=== PATIENT | male | born 1965 | race African-American/Black ===

== ENCOUNTER 2018-06-06 17:57 | Emergency (ER) | payer OTHER ==
[2018-06-06 19:23] LABS: Hemoglobin 16.8 g/dL (14.0-18.0); Mean Corpuscular HGB CONC 34.2 g/dL (32.0-36.0); Mean Corpuscular Hemoglobin 32.1 pg (27.0-31.0); Mean Corpuscular Volume 93.9 fL (78.0-98.0); Platelet Count 180 thou/uL (130-400); RBC Distribution Width 11.7 % (11.5-14.5); Red Blood Cell (RBC) Count 5.23 mill/uL (4.70-6.10); White Blood Cell (WBC) Count 9.4 thou/uL (4.8-10.8)
[2018-06-06 19:38] LABS: Band 10 % (5-11); Lymphocytes 5 % (21-51); MDiff Complete? YES; Monocytes 1 % (0-10); Neutrophil 84 % (42-75); PLT Morphology Comment Appears Adequate; RBC Morphology Normal
[2018-06-06 19:46] LABS: ALT (SGPT) 21 U/L (8-55); AST (SGOT) 18 U/L (5-34); Albumin 4.5 g/dL (3.5-5.0); Alkaline Phosphatase 72 U/L (40-150); Anion Gap 16 mmol/L (10-20); BUN (Urea Nitrogen) 15 mg/dL (8.4-25.7); Bilirubin, Total 0.8 mg/dL (0.2-1.2); Calc. Creatinine Clearance 0 mL/min (70-130); Calcium 9.8 mg/dL (7.8-10.44); Carbon Dioxide 21 mmol/L (22-29); Chloride 104 mmol/L (98-107); Estimated GFR-MDRD 65; Globulin 3.9 g/dL (2.4-3.5); Glucose 110 mg/dL (70-105); Lipase 40 U/L (8-78); Potassium 4.1 mmol/L (3.5-5.1); Protein, Total 8.4 g/dL (6.0-8.3); Sodium 137 mmol/L (136-145)
[2018-06-06] MEDS ORDERED: Ondansetron HCl/PF 4 MG/2 ML Vial ONE (19:50)
[2018-06-06] MEDS ORDERED: Morphine 4 MG/ML VIAL ONE (19:50)
[2018-06-06] MEDS ORDERED: Pantoprazole 40 MG VIAL ONE (19:51)
--- NOTE | 2018-06-11 14:02 | EKG ---
Test Reason : Blood Pressure : / mmHG Vent. Rate : 098 BPM Atrial Rate : 098 BPM P-R Int : 142 ms QRS Dur : 114 ms QT Int : 366 ms P-R-T Axes : 075 253 013 degrees QTc Int : 467 ms Normal sinus rhythm Possible Left atrial enlargement Right bundle branch block Abnormal ECG Undetermined axis Confirmed by PAULA MILLIGAN, MELINDA ([id number]), brands editor YUNI MANRIQUEZ ([id number]) on 06/11/2018 2:02:05 PM Referred By: Confirmed By:MELINDA MITCHELL MD
== END 2018-06-06 22:23 | disposition home or self-care (01) ==
LOC: ERS 17:57
DX: K52.9 Noninfective gastroenteritis and colitis, unspecified (principal); E78.5 Hyperlipidemia, unspecified; F32.9 Major depressive disorder, single episode, unspecified; F41.9 Anxiety disorder, unspecified; I10 Essential (primary) hypertension; G43.909 Migraine, unspecified, not intractable, without status migrainosus; Z79.899 Other long term (current) drug therapy
CPT/HCPCS: 36415; 80053; 83605; 83690; 85025; 93005; 96361; 96374; 96375; C9113; J2270; J2405

== ENCOUNTER 2019-05-18 11:10 | Emergency (ER) | payer OTHER ==
[2019-05-18] MEDS ORDERED: Dexamethasone 4 mg/ml Vial ONE (12:57)
[2019-05-18] MEDS ORDERED: Ketorolac Tromethamine 60 MG/2 ML VIAL ONE (12:57)
== END 2019-05-18 14:27 | disposition home or self-care (01) ==
LOC: ERS 11:10
DX: S39.012A Strain of muscle, fascia and tendon of lower back, initial encounter (principal); I67.1 Cerebral aneurysm, nonruptured; E78.5 Hyperlipidemia, unspecified; I10 Essential (primary) hypertension; F41.9 Anxiety disorder, unspecified; F32.9 Major depressive disorder, single episode, unspecified; Z79.82 Long term (current) use of aspirin; Z79.899 Other long term (current) drug therapy; X58.XXXA Exposure to other specified factors, initial encounter
CPT/HCPCS: 96372; 99283; J1100; J1885

== ENCOUNTER 2021-11-01 08:53 | Inpatient (IN) | payer OTHER ==
[2021-11-01 09:34] LABS: #Basophils 0.1 thou/uL (0.0-0.2); #Lymphocytes 1.9 thou/uL (1.20-3.40); #Monocytes 0.3 thou/uL (0.11-0.59); #Neutrophils 3.8 thou/uL (1.40-6.50); %Basophils 1.1 % (0.0-1.0); %Eosinophils 0.3 % (0.0-10.0); %Lymphocytes 30.9 % (21.0-51.0); %Monocytes 5.1 % (0.0-10.0); %Neutrophils 62.5 % (42.0-75.0); Hemoglobin 14.9 g/dL (14.0-18.0); Mean Corpuscular HGB CONC 34.8 g/dL (32.0-36.0); Mean Corpuscular Hemoglobin 32.6 pg (27.0-31.0); Mean Corpuscular Volume 93.6 fL (78.0-98.0); Mean Platelet Volume 8.2 fL (7.4-10.4); Platelet Count 192 thou/uL (130-400); RBC Distribution Width 11.6 % (11.5-14.5); Red Blood Cell (RBC) Count 4.57 mill/uL (4.70-6.10); White Blood Cell (WBC) Count 6.1 thou/uL (4.8-10.8)
[2021-11-01] MEDS ORDERED: Metoclopramide HCl 10 MG/2 ML VIAL ONE (09:51)
[2021-11-01] MEDS ORDERED: diphenhydrAMINE 50 MG/ML VIAL ONE (09:51)
[2021-11-01 09:55] LABS: ALT (SGPT) 18 U/L (8-55); AST (SGOT) 19 U/L (5-34); Albumin 4.1 g/dL (3.5-5.0); Alkaline Phosphatase 66 U/L (40-110); Anion Gap 13 mmol/L (10-20); BUN (Urea Nitrogen) 12 mg/dL (8.4-25.7); Bilirubin, Total 0.9 mg/dL (0.2-1.2); Calc. Creatinine Clearance 0 mL/min (70-130); Calcium 9.9 mg/dL (7.8-10.44); Carbon Dioxide 23 mmol/L (22-29); Chloride 104 mmol/L (98-107); Globulin 3.5 g/dL (2.4-3.5); Glucose 125 mg/dL (70-105); Lipase 37 U/L (8-78); Magnesium 1.7 mg/dL (1.6-2.6); Potassium 3.8 mmol/L (3.5-5.1); Protein, Total 7.6 g/dL (6.0-8.3); Sodium 136 mmol/L (136-145)
[2021-11-01 11:09] LABS: Bilirubin Negative (Negative); Blood, Urine Negative (Negative); Clarity Clear (Clear); Glucose, Urine (Dipstick) Normal (Negative); Ketone, Urine 10 mg/dL (Negative); Leukocyte Negative Leu/uL (Negative); Nitrite Negative (Negative); Protein, Urine (Dipstick) 10 mg/dL (Neg-Trace); Specific Gravity, Urine 1.021 (1.002-1.036); Urobilinogen Normal mg/dL (Less than 2)
[2021-11-01] MEDS ORDERED: methylPREDNISolone Sod Succ/PF 125 MG/2 ML VIAL ONE (11:49)
[2021-11-01 12:26] LABS: SARS-CoV-2 NAA Rapid Test Not Detected (NotDetected)
[2021-11-01] MEDS ORDERED: Haloperidol Lactate 5 MG/ML VIAL ONE (13:52)
[2021-11-01] MEDS ORDERED: Aspirin 325 MG TAB ONE (14:47)
[2021-11-01 15:02] LABS: Troponin I 0.018 ng/mL (< 0.028)
[2021-11-01] MEDS ORDERED: Bisacodyl 5 MG TAB PO PRN (15:20)
[2021-11-01] MEDS ORDERED: Nitroglycerin 0.4 MG TAB (25 Tab Bottle) SL PRN (15:20)
[2021-11-01] MEDS ORDERED: Ondansetron PF 4 MG/2 ML Vial IVP PRN (15:20)
[2021-11-01] MEDS ORDERED: Acetaminophen 325 MG TAB PO PRN (15:20)
[2021-11-01] MEDS ORDERED: hydrALAZINE 20 MG/ML VIAL SLOW IVP PRN (15:20)
[2021-11-01] MEDS ORDERED: Aspirin 325 MG TAB PO SCH (15:30)
[2021-11-01 17:53] VITALS: BMI 26.1
[2021-11-01 18:04] LABS: Troponin I 0.015 ng/mL (< 0.028)
[2021-11-02] MEDS ORDERED: Ibuprofen 200 MG TAB PO SCH (01:30)
[2021-11-02 06:29] LABS: #Lymphocytes 1.9 thou/uL (1.20-3.40); #Monocytes 0.8 thou/uL (0.11-0.59); #Neutrophils 10.9 thou/uL (1.40-6.50); %Basophils 0.1 % (0.0-1.0); %Lymphocytes 14.1 % (21.0-51.0); %Monocytes 5.7 % (0.0-10.0); %Neutrophils 80.1 % (42.0-75.0); Hemoglobin 14.4 g/dL (14.0-18.0); Mean Corpuscular HGB CONC 33.7 g/dL (32.0-36.0); Mean Corpuscular Hemoglobin 32.1 pg (27.0-31.0); Mean Corpuscular Volume 95.2 fL (78.0-98.0); Mean Platelet Volume 8.3 fL (7.4-10.4); Platelet Count 194 thou/uL (130-400); RBC Distribution Width 11.8 % (11.5-14.5); Red Blood Cell (RBC) Count 4.49 mill/uL (4.70-6.10); White Blood Cell (WBC) Count 13.6 thou/uL (4.8-10.8)
[2021-11-02 06:50] LABS: Anion Gap 15 mmol/L (10-20); BUN (Urea Nitrogen) 13 mg/dL (8.4-25.7); Calc. Creatinine Clearance 90 mL/min (70-130); Calcium 9.4 mg/dL (7.8-10.44); Carbon Dioxide 23 mmol/L (22-29); Cardiac Risk 6.6 (Less than 4.5); Chloride 105 mmol/L (98-107); Cholesterol 282 mg/dl (< 200 Desired); Glucose 103 mg/dL (70-105); HDL Cholesterol 43 mg/dL (>60 Neg Risk); LDL Cholesterol, Calculated 224 mg/dL; Potassium 3.7 mmol/L (3.5-5.1); Sodium 139 mmol/L (136-145); Triglycerides 77 mg/dL (Less than 150)
[2021-11-02] MEDS ORDERED: ADENOSINE 60 MG/20 ML VIAL ONE (09:37)
[2021-11-02] MEDS: Enoxaparin Sodium 40 MG/0.4 ML SYRINGE SC SCH (11:16)
[2021-11-02] MEDS ORDERED: Metoclopramide HCl 10 MG/2 ML VIAL IVP SCH (14:15)
[2021-11-02] MEDS ORDERED: diphenhydrAMINE 50 MG/ML VIAL IVP SCH (14:15)
[2021-11-02] MEDS ORDERED: SUMAtriptan Succinate 6 MG/0.5 ML VIAL SC SCH (14:15)
[2021-11-02] MEDS: Ketorolac Tromethamine 30 MG/ML VIAL IVP SCH ×2 (18:05→23:17)
[2021-11-03] MEDS: Ketorolac Tromethamine 30 MG/ML VIAL IVP SCH ×2 (05:35→11:24)
[2021-11-03 08:23] VITALS: TEMP 97.7
[2021-11-03] MEDS: Enoxaparin Sodium 40 MG/0.4 ML SYRINGE SC SCH (08:40)
[2021-11-03] MEDS ORDERED: Amlodipine 10 MG TAB PO SCH (09:00)
[2021-11-03 11:01] VITALS: BP 145/101
[2021-11-03] MEDS ORDERED: Atorvastatin Calcium 20 MG TAB PO SCH (21:00)
== END 2021-11-03 11:46 | disposition home or self-care (01) | DRG 103 ==
LOC: ERS 08:53 → ERHOLD 14:02 → NEURO 17:13 → OBSVTOIN 11-02 14:15
PROVIDERS: ADMIT Internal Medicine; ATTEND Nurse Practitioner Family
DX: G43.409 Hemiplegic migraine, not intractable, without status migrainosus (principal); R07.9 Chest pain, unspecified; Z20.822 Contact with and (suspected) exposure to COVID-19; R53.1 Weakness; F41.9 Anxiety disorder, unspecified; F32.A Depression, unspecified; E78.5 Hyperlipidemia, unspecified; I10 Essential (primary) hypertension; J34.1 Cyst and mucocele of nose and nasal sinus
CPT/HCPCS: 36415; 70450; 70551; 71045; 78452; 80048; 80053; 80061; 81003; 83690; 83735; 84484; 85025; 93005; 93017; 93306; 93880; 96372; A9500; G0378; J0153; J1200; J1630; J1650; J1885; J2765; J2930; J3030; U0002

== ENCOUNTER 2021-12-27 05:45 | Emergency (ER) | payer OTHER ==
[2021-12-27] MEDS ORDERED: Ketorolac Tromethamine 30 MG/ML VIAL ONE (07:23)
[2021-12-27 18:39] LABS: SARS-CoV-2 PCR by NAA Not Detected (NotDetected)
== END 2021-12-27 08:48 | disposition home or self-care (01) ==
LOC: ERS 05:45
DX: J02.9 Acute pharyngitis, unspecified (principal); G43.909 Migraine, unspecified, not intractable, without status migrainosus; Z20.822 Contact with and (suspected) exposure to COVID-19; E78.5 Hyperlipidemia, unspecified; I10 Essential (primary) hypertension; Z79.899 Other long term (current) drug therapy; Z79.82 Long term (current) use of aspirin
CPT/HCPCS: 87081; 87430; 96372; 99284; J1885; U0003; U0005